=== PATIENT | female | born 1945 | race Caucasian/White ===

== ENCOUNTER → 2020-10-06 | Outpatient (CLI) | payer MEDICARE, OTHER ==
[~2020-10-06] MED LIST: AMIT25TA PO; BIOT25005 PO; CHOL200024 PO; CHONDROITIN PO; ESTR0.5T PO; FLAX1000 PO; GLUC15006 PO; HYDR-3237 PO; LEVO125T5 PO; LISI40TA9 PO; MULT-516 PO; OMEG100023 PO; OXYB5TAB10 PO; TAMS0.4C2 PO
== END | disposition home or self-care (01) ==
LOC: RAD 13:44 → EDSTATUS 14:30
PROVIDERS: ATTEND Physician Assistant
DX: S32.810A Multiple fractures of pelvis with stable disruption of pelvic ring, initial encounter for closed fracture (principal); M16.11 Unilateral primary osteoarthritis, right hip; K57.30 Diverticulosis of large intestine without perforation or abscess without bleeding; X58.XXXA Exposure to other specified factors, initial encounter; Y93.89 Activity, other specified; Y92.89 Other specified places as the place of occurrence of the external cause; Y99.8 Other external cause status